=== PATIENT | female | born 1985 ===

== ENCOUNTER 2022-11-12 14:40 | Outpatient (REF) | payer SELFPAY ==
--- NOTE | 2022-11-12 14:30 | PAPFT_PTH ---
PATIENT: Vanesa Thornton LOC: [facility] U#:[id number] AGE/SX: 37/F ROOM: RE11/12/[address]: Liliam Puente MD : 1985 BED: DIS: 11/12/2022 SPEC #: [id number] RECD: 11/12/22 18:17 STATUS: LINDSEY REYong #: [id number] TAYLOR: 11/12/22 14:[address]: Liliam Puente DEPT: [facility] Cytology RECD BY: Justa Owens Tissues: 1 - CX/ENDOCX FOR PAP SMEARS Procedures: PAP THIN PREP/UVM Screening HPV DNA PROBE Comments: [id number] (CHLAMYDIA/GC)
[2022-11-13 14:31] LABS: Chlamydia Result Negative (Negative); GC Result Negative (Negative)
== END 2022-11-12 14:41 | disposition home or self-care (01) ==
LOC: LBN 14:40
PROVIDERS: Visit Provider Obstetrics & Gynecology
DX: Z11.51 Encounter for screening for human papillomavirus (HPV) (principal)
CPT/HCPCS: 87491; 87591; 88142; 87480; 87510; 87624; 87660

== ENCOUNTER 2022-11-13 05:01 | Outpatient (CLI) | payer SELFPAY ==
[2022-11-13 13:11] LABS: Abs Immature Grans 0.01 10^3/uL (0.0-0.06); Absolute Basophil Count 0.06 10^3/uL (0.0-0.2); Absolute Eosinophil Count 0.08 10^3/uL (0.0-0.7); Absolute Lymphocyte Count 2.39 10^3/uL (1.2-3.4); Absolute Monocyte Count 0.41 10^3/uL (0.1-0.8); Absolute Neutrophil Count 3.61 10^3/uL (1.2-6.7); Basophils % 0.9; Eosinophils % 1.2; HCT 37.4 % (36.0-46.0); HGB 12.2 g/dL (11.2-15.7); Immature Grans % 0.2; Lymphocytes % 36.4; MCH 30.4 pg (27.0-33.0); MCHC 32.6 % (32.0-36.0); MCV 93 fL (80-95); MPV 9.6 fL (8.0-11.0); Monocytes % 6.3; Platelet Count 245 10^3/uL (130-400); RBC 4.01 10^6/uL (3.93-5.22); RDW 12.2 % (11.7-14.6); RDW-SD 42.3 fL; WBC 6.56 10^3/uL (4.4-10.8)
[2022-11-13 14:01] LABS: TSH (W/Ref FT4) 0.72 uIU/mL (0.36-3.74)
[2022-11-15 09:58] LABS: Syphilis Serology (RPR) Negative (Negative)
[2022-11-15 10:15] LABS: HBs Antibody, Qual Negative (See Note); HBs Antibody, Quant 5.2 mIU/mL (See Note); Hepatitis B Core Antibody Negative (Negative); Hepatitis B surface Ag Negative (Negative); Hepatitis C Ab w Rflx HCV PCR Negative (Negative)
[2022-11-15 10:30] LABS: HIV-1/2 Ag & Ab Screen Negative (Negative)
== END 2022-11-13 05:02 | disposition home or self-care (01) ==
PROVIDERS: Visit Provider Obstetrics & Gynecology
DX: L65.9 Nonscarring hair loss, unspecified
CPT/HCPCS: 36415; 86704; 86706; 86803; 87340; 87389; 84443; 85025; 86592